=== PATIENT | female | born 2000 | race Caucasian/White ===

== ENCOUNTER 2023-04-17 12:05 | Emergency (ER) | payer BC, SELFPAY ==
[2023-04-17 12:34] VITALS: BP 107/60; PULSE 71; RESP 18; TEMP 36.6; O2SAT 99; BMI 23.2
--- NOTE | 2023-04-17 12:34 | ED_ITS ---
HPI - Extremity Injury (Lower) General Chief Complaint: Extremity Injury, Lower Stated Complaint: both ankle inj Time Seen by Provider: 04/17/23 15:34 Source: patient and RN notes reviewed Mode of arrival: ambulatory Limitations: no limitations History of Present Illness HPI Narrative: This is a 22-year-old female presenting to the emergency department complaints of bilateral ankle pain x 1 day. Patient states that she was caring food outdoors when suddenly she lost her balance, and inverted her right ankle in an inverted her left ankle. She immediately fell to the ground. She has been unable to bear weight on her feet secondary to pain. She was seen at an urgent care and was told to come to the emergency room to get an MRI. The x-rays that were performed at urgent care did not show any fractures. Denies history of injuries to her right or left ankle in the past. No numbness or tingling. She denies hitting her head or loss of consciousness. No other complaints or concerns at this time. MD complaint: ankle injury Onset (ago): day(s) Type of Injury: inversion Place: street/outdoors Severity: severe Relieving factors: nothing Exacerbating factors: weight bearing Context: fall Associated symptoms: snap/pop sensation, swelling and unable to bear weight Other symptoms: none Related Data Previous Rx's Medication Instructions Recorded acetaminophen 500 mg capsule 500 mg PO QID PRN pain #45 caps 04/17/23 ibuprofen 600 mg tablet 600 mg PO Q6H PRN pain #45 tabs 04/17/23 oxycodone 5 mg tablet 5 mg PO Q6H PRN pain #10 tabs 04/17/23 Allergies Allergy/AdvReac Type Severity Reaction Status Date / Time No Known Allergies Allergy Verified 04/17/23 12:34 Review of Systems Review of Systems: Yes all other systems are reviewed and are negative [facility] Past Medical History Attestation statement: The following information was validated with the patient. Social History Social History Advance Directives: No Advance Directives Information Provided: No Physical Exam Vital Signs: Vital Signs: Last Vital Signs Temp 97.9 F 04/17/23 12:34 Pulse 71 04/17/23 12:34 Resp 18 04/17/23 12:34 BP 107/60 04/17/23 12:34 Pulse Ox 99 04/17/23 12:34 O2 Del Method Room Air 04/17/23 12:34 BMI result Body Mass Index 23.2 Const: Other: General: Awake, alert, and oriented X3. No acute distress. HEENT: Normal inspection CVS: Normal heart rate and rhythm. Pulses normal. Respiratory: No respiratory distress Skin: Warm, dry, no rashes noted to exposed skin. Normal skin color. Normal skin turgor. Extremities: Left ankle TTP over lateral and medial mallelous with diffuse edema noted, no bony step off or crepitus. Right ankle malleloli are nontender, TTP overlying calcaneofibular ligament and posterior talofibular ligament regions. DP pulse 2+. ROM limited secondary to pain. Able to move all toes. No overlying erythema. Cap refill < 2 seconds. No calf tenderness bilaterally.No fifth metatarsal ttp. Neuro: Oriented X 3. No motor deficit. No sensory deficit. Course Course Course Narrative: This is an RME: Additional HPI, ROS, PE not included below will be deferred to primary provider. Patient is a 22-year-old female who presents emergency department for evaluation of bilateral ankle pain. She reports that last night she fell off of a step approximately 16-24 , having pain bilateral ankle pain, L>R,reports unable to bear any weight due to pain. She was evaluated at urgent care prior to her arrival, had bilateral ankle XR; three views and foot XR without evidence of acute fracture or dislocation. She states she was advised to come to the emergency department to have CT imaging of the ankles due to her degree of pain. PE: 2+ DP/PT pulse bilaterally, no deformity, no TTP over tibial plateau, fibular head or distal half of lower extremities. Medications Administered Discontinued Medications Generic Name Dose Route Start Last Admin Trade Name Freq PRN Reason Stop Dose Admin Oxycodone HCl 5 mg 04/17/23 15:56 04/17/23 16:04 Oxycodone Hcl Immed Release 5 Mg Tablet PO 04/17/23 15:57 5 mg ONCE ONE Administration Medical Decision Making Medical Decision Making MDM Narrative: 22 y/o F presenting to the ER with complaints of BL ankle pain. She was seen at an urgent care where they performed BL ankle x-rays which did not reveal any bony abnormalities. She presented to the ER for possible additional imaging. I discussed this with my attending physician, and orthopedic BLUE, John Paul Mayes who recommend outpatient follow up and pain management. CT will not be of any assistance and she needs to f/u with orthopedics for further evaluation. Pt has wheelchair with her and feels comfortable to go home. Pt given return precaautions, pt understands and agrees with plan, given orthopedic f/u advised to call for appt. Stable for d/c Plan: Pain management Differential Diagnosis Differential Diagnoses: The differential diagnosis associated with the presentation includes sprain, strain, contusion, fx Radiology Impression Radiologist Impression: Radiology impression from Urgent care reviewed: Mild soft tissue swelling over lateral mallelous BL.No bony deformities Discharge Plan Discharge Clinical Impression: Ankle sprain and strain Patient Disposition: Home, Self-Care Instructions: Ankle Sprain (ED), How to Use an Elastic Bandage (ED), R.I.C.E. Treatment (ED), Ice Pack Application (ED), Ankle Strain (ED), Cold Compress or Soak (ED) Additional Instructions: You were seen in the emergency department for bilateral ankle pain. You already had x-rays at an urgent care which did not reveal any fractures. Please rest, ice, elevate your ankles, and use Suresh wraps for comfort and compression. Gentle range of motion of your ankles and legs is encouraged. You need to have further workup at Orthopedics, call on Wednesday morning for further evaluation and treatment. You were given oxycodone 5 mg by mouth in the department today. Please take ibuprofen and Tylenol scheduled for the next several days. Please take oxycodone for severe pain only. Please be advised that this can cause drowsiness, do not drink alcohol or drive while taking this medication. Please be advised that oxycodone is a strong narcotic pain medication and is addictive. Only take this for severe pain. You cannot have this medication refilled from the emergency room. Please follow-up with primary care physician. Prescriptions: New acetaminophen 500 mg capsule 500 mg PO QID PRN (Reason: pain) Qty: 45 0RF ibuprofen 600 mg tablet 600 mg PO Q6H PRN (Reason: pain) Qty: 45 0RF oxycodone 5 mg tablet 5 mg PO Q6H PRN (Reason: pain) Qty: 10 0RF Rx Instructions: Partial Fill upon patient request. Referrals: [facility] [Provider Group] Interventions: ED Discharge Assessment Last Done: 04/17/23 16:46 Discharge Date/Time: 04/17/23 16:48
[2023-04-17] MEDS: oxyCODONE HCl Immed Release 5 MG TABLET PO (16:04)
== END 2023-04-17 16:48 | disposition home or self-care (01) ==
PROVIDERS: Emergency Provider Student in an Organized Health Care Education/Training Program
DX: S93.402A Sprain of unspecified ligament of left ankle, initial encounter (principal); S93.401A Sprain of unspecified ligament of right ankle, initial encounter; S96.912A Strain of unspecified muscle and tendon at ankle and foot level, left foot, initial encounter; S96.911A Strain of unspecified muscle and tendon at ankle and foot level, right foot, initial encounter; W10.8XXA Fall (on) (from) other stairs and steps, initial encounter; Y93.89 Activity, other specified; Y92.008 Other place in unspecified non-institutional (private) residence as the place of occurrence of the external cause; Y99.9 Unspecified external cause status
CPT/HCPCS: 99283

== ENCOUNTER 2023-06-23 07:21 | Emergency (ER) | payer BC, SELFPAY ==
[2023-06-23 07:32] VITALS: BP 125/78; PULSE 75; RESP 18; TEMP 36.3; O2SAT 99; BMI 23.6
--- NOTE | 2023-06-23 07:55 | ED.ABDPAIN ---
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 She states it was a difficult recovery. About 2 weeks ago she had protected sex with male partner but has had some scant discharge and now has dysuria, flank pain. No fevers but has had some chills. She has not had any UTIs since recovering from her surgery. This has been going on for 8 days. MD elicited complaint: abdominal pain and flank pain Pertinent past history: past UTI Onset (ago): day(s) (8) Pain Consistency: constant Location: L flank, R flank and pelvis Severity: mild Quality: aching Radiation: none Migration to: no migration Exacerbating factors: other (urination) Relieving factors: nothing Context: history of similar episodes and other (recent new partner) Associated symptoms: chills Related Data Previous Rx's Medication Instructions Recorded acetaminophen 500 mg capsule 500 mg PO QID PRN pain #45 caps 04/17/23 ibuprofen 600 mg tablet 600 mg PO Q6H PRN pain #45 tabs 04/17/23 oxycodone 5 mg tablet 5 mg PO Q6H PRN pain #10 tabs 04/17/23 cefuroxime axetil 250 mg tablet 250 mg PO BID 7 days #14 tabs 06/23/23 doxycycline hyclate 100 mg capsule 100 mg PO BID 7 days #13 caps 06/23/23 fluconazole 150 mg tablet 150 mg PO Q3D 2 doses #2 tabs 06/23/23 ondansetron 4 mg disintegrating 4 mg PO Q8H PRN nausea and 06/23/23 tablet vomiting #20 tabs Allergies Allergy/AdvReac Type Severity Reaction Status Date / Time No Known Allergies Allergy Verified 06/23/23 07:35 Review of Systems Review of Systems Constitutional : No Fever, No Chills ENT/Mouth : No sore throat Eyes: No Eye Pain, No Swelling, No Redness Cardiovascular : No Chest Pain, No SOB Respiratory : No Cough, No Sputum, No Wheezing Gastrointestinal : no Nausea, no Vomiting, No Diarrhea, positive abdominal pain Genitourinary : positive Dysuria, positive urinary frequency, no Hematuria, positive Flank Pain, pos discharge Musculoskeletal : No joint pain, No Myalgias Skin : No Skin Lesions, No rash Neuro : No Weakness, No Numbness, No Headache Psych : No Anxiety/Panic, No Depression Heme/Lymph: No Bruising, No Lymphadenopathy Endocrine : No Polyuria, No Polydipsia All other systems reviewed and are negative [facility] Past Medical History [facility] Narrative: urethroplasty Onset Date is defined in the Problem List Problems that require an onset date and time if occurred within 24 hrs of arrival to the ED Aortic Dissection and Rupture; Neurologic impairment; Cardiopulmonary Arrest; Endotracheal Intubation; Insertion or Replacement of Mechanical Circulatory Assist Device Medical History H/O urethral stricture UTI (urinary tract infection) Social History Social History (Updated 06/23/23 @ 08:09 by Lary Mi DO) Alcohol intake: current Alcohol intake frequency: holidays/special occasions only Patient Tobacco Use Status: Never used Tobacco Smoked in Last 30 Days: No Use of substances other than those prescribed or required for medical reasons: No Advance Directives: No Patient : No Physical Exam ED Vital Signs: Vital Signs - 24 hr 06/23/23 07:32 06/23/23 07:59 Temperature 97.3 F 98.0 F Pulse Rate 75 85 Respiratory Rate 18 16 Blood Pressure 125/78 119/79 Pulse Oximetry 99 98 Oxygen Delivery Method Room Air Room Air BMI result Body Mass Index 23.6 Appearance: Alert. Oriented X3. No acute distress. Eyes: Pupils equal, round and reactive to light. ENT: Pharynx normal. Neck: Normal inspection. Neck supple. CVS: Normal heart rate and rhythm. Pulses normal. Respiratory: No respiratory distress. Breath sounds normal. Abdomen: Soft and mild suprapubic ttp Skin: Skin warm and dry. Normal skin color. Normal skin turgor. Extremities: No lower extremity edema. Neuro: Oriented X 3. No motor deficit. No sensory deficit. Medical Decision Making Medical Decision Making [facility] Narrative: 22 yo female with recent possible STI exposure but also hx of UTI and R urethroplasty at this time will need GC testing, trichomonas testing, labs, UA and UPT, IVF and will obtain US to evaluate for degree of hydronephrosis. Overall not toxic, afebrile and tolerating PO in ED. Differential Diagnosis Differential Diagnoses: The differential diagnosis associated with the presentation includes UTI, STI Admission/Observation Consideration of admission/observation: Escalation of care including admission/observation considered Lab Data MDM Lab Attestation statement: I reviewed the patient's lab results. 06/23/23 08:08 06/23/23 08:36 Labs: Lab Results 06/23/23 06/23/23 Range/Units 08:08 08:36 WBC 10.9 H (4.8-10.8) X10*3/uL RBC 4.58 (4.20-5.50) X10*6/uL Hgb 13.7 (12.0-16.0) g/dl Hct 40.5 (37.0-47.0) % MCV 88.4 (80.0-98.0) fL MCH 29.9 (27.0-33.0) pg MCHC 33.8 (31.0-35.0) g/dl RDW 12.1 (11.0-16.0) % Plt Count 224 (160-400) X10*3/uL MPV 10.3 (9.4-12.3) fL Immature Gran % (Auto) 0.3 (0.0-0.4) % Neut % (Auto) 72.8 (45-73) % Lymph % (Auto) 18.0 L (20-40) % [place]ax % (Auto) 6.6 (2-11) % Eos % (Auto) 2.0 (0-4) % Baso % (Auto) 0.3 (0-2) % Lymph # (Auto) 2.0 (1.2-4.9) X10*3/uL [place]ax # (Auto) 0.7 (0.1-1.2) X10*3/uL Eos # (Auto) 0.2 (0.0-0.4) X10*3/uL Baso # (Auto) 0.0 (0.0-0.2) X10*3/uL Abs Immat Gran (auto) 0.03 (0.00-0.03) X10*3/uL Absolute Neuts (auto) 7.9 (2.0-8.3) x10*3/uL Absolute Nucleated RBC 0.000 (0.0-0.012) X10*3/uL Nucleated RBC % (auto) 0.0 (0.0-0.2) /100WBC Sodium 141 (135-145) mmol/L Potassium 4.1 (3.3-5.1) mmol/L Chloride 110 H (96-108) mmol/L Carbon Dioxide 27 (22-29) mmol/L Anion Gap 8 L (12-20) BUN 12 (9-16) mg/dL Creatinine 0.87 (0.5-1.4) mg/dL Estim Creat Clear Calc 90.4 Estimated GFR > 60 Random Glucose 86 (60-115) mg/dL Calcium 9.6 (8.4-10.2) mg/dL Total Bilirubin 0.7 (0.0-1.0) mg/dL Direct Bilirubin 0.3 (0.0-0.5) mg/dL AST 18 (5-31) U/L ALT 10 (0-31) U/L Alkaline Phosphatase 72 (39-117) U/L Total Protein 7.3 (6.5-8.0) g/dL Albumin 4.4 (3.5-5.0) g/dL Lipase 38 (8-78) U/L Urine Color Yellow Urine Appearance Clear Urine pH 5.5 (5.0-9.0) Ur Specific Gould 1.015 (1.005-1.025) Urine Protein Negative (Neg-Trace) mg/dL Urine Glucose (UA) Negative (Negative) mg/dL Urine Ketones Negative (Negative) mg/dL Urine Blood Negative (Negative) Urine Nitrite Negative (Negative) Ur Leukocyte Esterase Moderate (2+) H (Negative) Urine RBC 0-2 (0-2) /HPF Urine WBC 6-10 H (0-5) /HPF Ur Squamous Epith Cells 6-10 (0-2) /HPF Urine Bacteria None Seen (None Seen) Hyaline Casts 0-2 (0-2) /LPF Urine Test NEGATIVE (NEGATIVE) Independent Interpretation I performed an independent interpretation of an: Ultrasound Radiology Impression Discussion of test interpretation with radiology: I have reviewed the radiologist's reading. Medications Administered Discontinued Medications Generic Name Dose Route Start Last Admin Trade Name Freq PRN Reason Stop Dose Admin Sodium Chloride 1,000 mls @ 999 mls/hr 06/23/23 08:00 06/23/23 09:22 Ns IV 06/23/23 09:00 Infused .Q1H1M [facility] Infusion Discharge Plan Discharge Clinical Impression: Acute UTI, Possible exposure to STD Patient Disposition: Home, Self-Care Instructions: Sexually Transmitted Diseases (ED), Urinary Tract Infection in Women (ED) Additional Instructions: treated presumptively for gonorrhea and chlamydia. finish all antibiotics. no sex for 1 week - partner needs to be tested and treated as well. return for worsening symptoms, pain, fever, inability to eat or drink or any other concerns. will call you with positive results RIGHT KIDNEY: 11.1 x 4.1 x 5.6 cm. cm (SAG x AP x TRV). The kidney is normal in size, contour, and echogenicity. Renal cortical thickness is normal. No calculi or focal parenchymal lesions. There is mild renal pelvic fullness. LEFT KIDNEY: 11.0 x 6.2 x 5.9 cm (SAG x AP x TRV). The kidney is normal in size, contour, and echogenicity. Renal cortical thickness is normal. No calculi or focal parenchymal lesions. There is mild renal pelvic fullness. BLADDER: Well distended and normal. Bilateral ureteral jets are demonstrated. Prevoid bladder volume is 951 mL. Postvoid bladder volume is 255 mL. US/US retroperitoneal comp IMPRESSION: There is bilateral renal pelvic fullness. On a cephalosporin?antibiotic, softer bowel movements are to be expected. Call your provider if you move your bowels more than 4 times a day, your bowel movements are almost all liquid, or you get a rash.? On doxycycline, do not take pills immediately before going to bed and swallow pills with plenty of water. Avoid direct sunlight, iron, antacids, and Pepto Bismol. Call your provider if you develop new ringing in your ears, new problems hearing, dizziness, difficulty swallowing, rash, abdominal discomfort, nausea, or diarrhea.? Take a probiotic while you are on antibiotics and for at least one week after the antibiotics are finished - this can help protect your GI system from diarrhea and other issues. You can get probiotics by drinking kefir, eating yogurt or culturelle or another pill form of probiotic. Do not take it at the same time as you take the antibiotic.?More than 6 to 8 loose stools a day is not normal seek care if this happens Prescriptions: New doxycycline hyclate 100 mg capsule 100 mg PO BID 7 Days Qty: 13 0RF cefuroxime axetil 250 mg tablet 250 mg PO BID 7 Days Qty: 14 0RF ondansetron 4 mg tablet,disintegrating 4 mg PO Q8H PRN (Reason: nausea and vomiting) Qty: 20 0RF fluconazole 150 mg tablet 150 mg PO Q3D Qty: 2 0RF Rx Instructions: may repeat second dose 72 hrs after first dose if symptoms persist No Action acetaminophen 500 mg capsule 500 mg PO QID PRN (Reason: pain) Qty: 45 0RF ibuprofen 600 mg tablet 600 mg PO Q6H PRN (Reason: pain) Qty: 45 0RF oxycodone 5 mg tablet 5 mg PO Q6H PRN (Reason: pain) Qty: 10 0RF Rx Instructions: Partial Fill upon patient request. Stand Alone Forms: Work/School Release
[2023-06-23 07:59] VITALS: BP 119/79; PULSE 85; RESP 16; TEMP 36.7; O2SAT 98
[2023-06-23 08:13] LABS: MANUAL DIFF FLAG NO
[2023-06-23] MEDS: 0.9 % Sodium Chloride 1,000 ML 999 ML IV (08:21)
--- NOTE | 2023-06-23 08:21 | PC.NURSE ---
a&ox4, vss and up to date. pt comes in d/t RLQ/bilateral flank pain/dysuria. pt has hx of kidney issues/UTI. currently afebrile. denies fever/chills. tender upon palpation. 20gIV placed in left AC - labs drawn and sent to lab. IVF administered per provider order. pt awaiting on US at this time. respirations even and unlabored. call xie placed within reach.
[2023-06-23 08:23] LABS: Basophils Percent Auto 0.3 % (0-2); Eosinophils Absolute Auto 0.2 X10*3/uL (0.0-0.4); Hematocrit 40.5 % (37.0-47.0); Hemoglobin 13.7 g/dl (12.0-16.0); Imm Gran Abs Auto 0.03 X10*3/uL (0.00-0.03); Imm Gran Pct Auto 0.3 % (0.0-0.4); Mean Corpuscular HGB Conc 33.8 g/dl (31.0-35.0); Mean Corpuscular Hemoglobin 29.9 pg (27.0-33.0); Mean Corpuscular Volume 88.4 fL (80.0-98.0); Mean Platelet Volume 10.3 fL (9.4-12.3); Monocytes Absolute Auto 0.7 X10*3/uL (0.1-1.2); Monocytes Percent Auto 6.6 % (2-11); Neutrophils Absolute Auto 7.9 x10*3/uL (2.0-8.3); Neutrophils Percent Auto 72.8 % (45-73); Platelet Count 224 X10*3/uL (160-400); Red Blood Count 4.58 X10*6/uL (4.20-5.50); Red Cell Distribution Width 12.1 % (11.0-16.0); White Blood Count 10.9 X10*3/uL (4.8-10.8)
[2023-06-23 08:25] LABS: Appearance Urine Clear; Color Urine Yellow; Glucose Urine UA Negative (Negative); Leukocyte Esterase Urine Moderate (2+) (Negative); Nitrite Urine Negative (Negative); PH 5.5 (5.0-9.0); Specific Gravity - Urine 1.015 (1.005-1.025); UMIC TRIGGER UACC YES; Urine Blood Negative (Negative); Urine Ketones Negative (Negative); Urine Protein Negative (Neg-Trace)
[2023-06-23 08:35] LABS: UPreg QC Valid YES; Urine Pregnancy NEGATIVE (NEGATIVE)
[2023-06-23 08:46] LABS: Bacteria Urine None Seen (None Seen); Hyaline Casts Urine 0-2 /LPF (0-2); RBC Urine 0-2 /HPF (0-2); UACC Culture Trigger YES
[2023-06-23 09:09] LABS: Alanine Aminotransferase 10 U/L (0-31); Albumin Level 4.4 g/dL (3.5-5.0); Alkaline Phosphatase 72 U/L (39-117); Anion Gap 8 (12-20); Aspartate Amino Transferase 18 U/L (5-31); Bilirubin Direct 0.3 mg/dL (0.0-0.5); Bilirubin Total 0.7 mg/dL (0.0-1.0); Blood Urea Nitrogen 12 mg/dL (9-16); Calcium 9.6 mg/dL (8.4-10.2); Carbon Dioxide 27 mmol/L (22-29); Chloride 110 mmol/L (96-108); Creatinine Clr Calc Pharmacy 90.4; Estimated Glomerular Filt Rate > 60; Glucose Random 86 mg/dL (60-115); Lipase 38 U/L (8-78); Potassium 4.1 mmol/L (3.3-5.1); Sodium 141 mmol/L (135-145); Total Protein 7.3 g/dL (6.5-8.0)
--- NOTE | 2023-06-23 09:26 | PC.NURSE ---
pt self obtained vaginal swabs. tech sent swabs to lab. ultrasound now bedside at this time.
[2023-06-23 11:02] VITALS: BP 107/68; PULSE 69; RESP 16; O2SAT 97
--- NOTE | 2023-06-23 11:10 | PC.NURSE ---
medication administered per provider order. pt provided w/ d/c paperwork.
== END 2023-06-23 11:11 | disposition home or self-care (01) ==
PROVIDERS: Emergency Provider Emergency Medicine
DX: N39.0 Urinary tract infection, site not specified (principal); R30.0 Dysuria; R10.9 Unspecified abdominal pain; Z20.2 Contact with and (suspected) exposure to infections with a predominantly sexual mode of transmission
CPT/HCPCS: 0353U; 36415; 76770; 80048; 80076; 81001; 81025; 83690; 85025; 87086; 87480; 87510; 87660; 96360; 96372; 99284; J0696